=== PATIENT | female | born 1980 | race Two or more races ===

== ENCOUNTER 2023-02-10 08:17 | Outpatient (CLI) | payer OTHER | END 2023-02-10 08:23 | disposition home or self-care (01) | LOC: LAB 08:17 | PROVIDERS: ATTEND Internal Medicine Hematology & Oncology | DX: D50.8 Other iron deficiency anemias (principal); R79.9 Abnormal finding of blood chemistry, unspecified; I10 Essential (primary) hypertension; R74.02 Elevation of levels of lactic acid dehydrogenase [LDH]; K76.89 Other specified diseases of liver; D69.6 Thrombocytopenia, unspecified; E11.40 Type 2 diabetes mellitus with diabetic neuropathy, unspecified; R04.0 Epistaxis; K06.8 Other specified disorders of gingiva and edentulous alveolar ridge; E03.8 Other specified hypothyroidism ==